=== PATIENT | female | born 1965 | race Caucasian/White ===

== ENCOUNTER → 2020-07-06 | Outpatient (CLI) | payer OTHER ==
[~2020-07-06] MED LIST: ASPI-1012 PO; CHOL20004 PO; CLON2TAB11 PO; HYDR-4457 PO; QUET300T44 PO; RISP3TAB63 PO; SERT100T12 PO; TRAZ150T79 PO
== END | disposition home or self-care (01) ==
LOC: RAH 10:00
PROVIDERS: ATTEND Family Medicine
DX: K76.0 Fatty (change of) liver, not elsewhere classified (principal); R16.0 Hepatomegaly, not elsewhere classified; R14.0 Abdominal distension (gaseous)
CPT/HCPCS: 76700

== ENCOUNTER 2022-06-06 07:56 | Observation (INO) | payer OTHER ==
[2022-06-04 11:41] LABS: BASOPHILS % (AUTO) 0.4 % (0.0-5.0); HEMATOCRIT 40.1 % (36-48); LYMPHOCYTES % (AUTO) 37.1 % (21.0-51.0); MEAN CORPUSCULAR HEMOGLOBIN 31.3 pg (27.0-33.0); MEAN CORPUSCULAR HGB CONC 34.7 g/dL (32.0-36.0); MEAN CORPUSCULAR VOLUME 90.3 fL (79-99); MONOCYTES % (AUTO) 6.7 % (3.0-13.0); NEUTROPHILS % (AUTO) 54.7 % (40.0-77.0); PLATELET COUNT (AUTO) 266 K/uL (130-400); RED BLOOD CELL COUNT(AUTO) 4.44 MIL/uL (4.00-5.50); RED CELL DISTRIBUTION WIDTH 12.4 % (11.0-15.5); WHITE BLOOD COUNT (AUTO) 8.2 K/uL (4.8-10.8)
[2022-06-04 11:50] LABS: ALBUMIN 4.2 g/dL (3.5-5.0); CARBON DIOXIDE 30 mmol/L (21-32); CHLORIDE 100 mmol/L (101-111); CREATININE 0.9 mg/dL (0.5-1.5); GLOMERULAR FILTR. RATE CALC 68 mL/min (>60); GLUCOSE,RANDOM 157 mg/dL (70-105); POTASSIUM 3.6 mmol/L (3.5-5.1); SODIUM SERUM 137 mmol/L (136-145); UREA NITROGEN, BLOOD 13 mg/dL (7-18)
[2022-06-04 11:51] LABS: CRP QUANTITATIVE < 2.00 mg/L (0.00-9.0)
[2022-06-04 11:53] LABS: INR 0.94 (0.85-1.15); PROTHROMBIN TIME 10.3 SEC (9.6-11.6)
[2022-06-04 11:55] LABS: PARTIAL THROMBOPLASTIN TIME 27.3 SEC (26.3-35.5)
[2022-06-05 12:40] VITALS: BP 123/69
[~2022-06-06] VITALS: Ht 157.5 cm; Wt 73.5 kg
[2022-06-06] VITALS (29 sets, daily range): BP systolic 106–165; BP diastolic 56–81
[~2022-06-06 07:56] MED LIST changes: -ASPI-1012 PO; +DOCU50CA13 PO; +GABA600T10 PO; -HYDR-4457 PO; +MELO-106 PO; +MULT-1367 PO; +OMEG-148 PO; +QUET300T19 PO; -QUET300T44 PO; +SENN-183 PO; -SERT100T12 PO
[2022-06-06] MEDS ORDERED: KETOROLAC 30MG VIAL (30MG/ML) ONE (08:14)
[2022-06-06] MEDS ORDERED: ROPIVACAINE 0.5% 5MG/ML 30ML IJ ONE ×3 (08:14→10:38)
[2022-06-06] MEDS ORDERED: LACTATED RINGERS 1000ML 1,000 ML IV ONE (08:21)
[2022-06-06] MEDS: CEFAZOLIN SODIUM 1 GM VIAL IVP ONE ×2 (09:25→10:40)
[2022-06-06] MEDS ORDERED: PROPOFOL 10 MG/ML 20ML VIAL IV ONE (10:36)
[2022-06-06] MEDS ORDERED: LIDOCAINE HCL-MPF 1% 5ML AMP IJ ONE (10:38)
[2022-06-06] MEDS ORDERED: DEXAMETHASONE SOD PHOSPHATE 10MG/ML 1ML VIAL ONE (10:39)
[2022-06-06] MEDS ORDERED: MIDAZOLAM HCL 1 MG/ML 2ML VIAL ONE ×2 (10:39→13:27)
[2022-06-06] MEDS ORDERED: ONDANSETRON 4MG INJ ONE (10:39)
[2022-06-06] MEDS ORDERED: ROCURONIUM 10MG/1ML SYR 10 MG/ML ML ONE (10:40)
[2022-06-06] MEDS ORDERED: FENTANYL CITRATE PF 50 MCG/1 ML 2ML VIAL ONE ×2 (10:41→13:18)
[2022-06-06] MEDS: TRANEXAMIC ACID 1000MG/10ML ONE ×2 (10:55→12:11)
[2022-06-06] MEDS ORDERED: GLYCOPYRROLATE 1 MG/5 ML SYRINGE ONE (12:19)
[2022-06-06] MEDS ORDERED: NEOSTIGMINE 5MG/5ML SYR IV ONE (12:50)
[2022-06-06] MEDS ORDERED: MEPERIDINE-PF 25 MG/ML SYG ONE ×2 (12:59→13:08)
[2022-06-06] MEDS ORDERED: CALCIUM CARB 500MG PO PRN (13:00)
[2022-06-06] MEDS: KETOROLAC 15MG/ML VIAL (15MG/ML) IV SCH ×2 (13:00→20:02)
[2022-06-06] MEDS ORDERED: LIDOCAINE HCL-MPF 1% 2ML VIAL IV PRN (13:00)
[2022-06-06] MEDS ORDERED: HYDROCODONE/ACETAMINOPHEN 5/325 MG TAB PO PRN (13:00)
[2022-06-06] MEDS ORDERED: POTASSIUM CHLORIDE 10% ELIXIR 20 MEQ/15 ML UDCUP PO PRN (13:00)
[2022-06-06] MEDS ORDERED: ONDANSETRON 4MG INJ IVP PRN (13:00)
[2022-06-06] MEDS ORDERED: KCL 20 MEQ ERTAB PO PRN (13:00)
[2022-06-06] MEDS: 0.9%NACL 1000ML 1,000 ML IV SCH ×2 (13:00→23:26)
[2022-06-06] MEDS ORDERED: FERROUS FUMARATE 324 MG TABLET PO PRN (13:00)
[2022-06-06] MEDS ORDERED: POTASSIUM CHLORIDE 20MEQ/100ML 100 ML IV PRN (13:00)
[2022-06-06] MEDS: GABAPENTIN 100 MG CAPSULE PO SCH ×2 (16:39→20:01)
[2022-06-06] MEDS: TRAMADOL HCL 50 MG TABLET PO PRN (16:39)
[2022-06-06] MEDS: CEFAZOLIN SODIUM 1 GM VIAL IVP SCH (18:35)
[2022-06-06] MEDS: HYDROCODONE/ACETAMINOPHEN 5/325 MG TAB PO PRN (18:36)
[2022-06-06] MEDS: DOCUSATE SODIUM 100 MG CAP PO SCH (20:01)
[2022-06-06] MEDS: RISPERIDONE 1 MG TABLET PO SCH (23:25)
[2022-06-06] MEDS: QUETIAPINE FUMARATE 100 MG TAB PO SCH (23:25)
[2022-06-06] MEDS: TRAZODONE HCL 100 MG TABLET PO SCH (23:26)
[2022-06-07] MEDS: CEFAZOLIN SODIUM 1 GM VIAL IVP SCH (01:42)
[2022-06-07] MEDS: HYDROCODONE/ACETAMINOPHEN 5/325 MG TAB PO PRN ×4 (02:14→18:54)
[2022-06-07] MEDS: CYCLOBENZAPRINE HCL 10 MG TABLET PO PRN ×2 (04:13→20:27)
[2022-06-07] MEDS: KETOROLAC 15MG/ML VIAL (15MG/ML) IV SCH (04:13)
[2022-06-07 04:16] LABS: HEMATOCRIT 30.3 % (36-48); MEAN CORPUSCULAR HEMOGLOBIN 31.3 pg (27.0-33.0); MEAN CORPUSCULAR HGB CONC 34.7 g/dL (32.0-36.0); MEAN CORPUSCULAR VOLUME 90.2 fL (79-99); RED BLOOD CELL COUNT(AUTO) 3.36 MIL/uL (4.00-5.50); RED CELL DISTRIBUTION WIDTH 12.6 % (11.0-15.5); WHITE BLOOD COUNT (AUTO) 13.2 K/uL (4.8-10.8)
[2022-06-07 04:17] VITALS: BP 109/59
[2022-06-07 04:25] LABS: CREATININE 1.1 mg/dL (0.5-1.5); POTASSIUM 3.7 mmol/L (3.5-5.1)
[2022-06-07 08:00] VITALS: BP 142/73
[2022-06-07] MEDS: FISH OIL 1000 MG/CAP PO SCH (08:35)
[2022-06-07] MEDS: POLYETHYLENE GLYCOL 3350 17 GM POWD.PACK PO SCH (08:35)
[2022-06-07] MEDS: CHOLECALCIFEROL 2000 UNIT PO SCH (08:36)
[2022-06-07] MEDS: GABAPENTIN 100 MG CAPSULE PO SCH ×3 (08:36→20:27)
[2022-06-07] MEDS: DOCUSATE SODIUM 100 MG CAP PO SCH ×2 (08:36→20:27)
[2022-06-07] MEDS: MULTIVITAMIN TABLET PO SCH (08:36)
[2022-06-07] MEDS: ASPIRIN 325MG TAB PO SCH (08:36)
[2022-06-07] MEDS: 0.9%NACL 1000ML 1,000 ML IV SCH (09:00)
[2022-06-07 11:30] VITALS: BP 114/65
[2022-06-07 16:30] VITALS: BP 123/59
[2022-06-07] MEDS: TRAMADOL HCL 50 MG TABLET PO PRN ×2 (16:43→21:59)
[2022-06-07 19:49] VITALS: BP 140/88
[2022-06-07] MEDS: TRAZODONE HCL 100 MG TABLET PO SCH (23:16)
[2022-06-07] MEDS: RISPERIDONE 1 MG TABLET PO SCH (23:17)
[2022-06-07] MEDS: QUETIAPINE FUMARATE 100 MG TAB PO SCH (23:17)
[2022-06-07 23:34] VITALS: BP 127/54
[2022-06-08 04:07] VITALS: BP 123/52
[2022-06-08] MEDS: HYDROCODONE/ACETAMINOPHEN 5/325 MG TAB PO PRN ×2 (06:10→11:20)
[2022-06-08] MEDS: CHOLECALCIFEROL 2000 UNIT PO SCH (07:59)
[2022-06-08 08:00] VITALS: BP 121/49
[2022-06-08] MEDS: DOCUSATE SODIUM 100 MG CAP PO SCH (08:38)
[2022-06-08] MEDS: MULTIVITAMIN TABLET PO SCH (08:38)
[2022-06-08] MEDS: FISH OIL 1000 MG/CAP PO SCH (08:38)
[2022-06-08] MEDS: ASPIRIN 325MG TAB PO SCH (08:39)
[2022-06-08] MEDS: GABAPENTIN 100 MG CAPSULE PO SCH (08:39)
[2022-06-08] MEDS: POLYETHYLENE GLYCOL 3350 17 GM POWD.PACK PO SCH (08:39)
[2022-06-08] MEDS: TRAMADOL HCL 50 MG TABLET PO PRN (09:17)
[2022-06-08] MEDS: MAGNESIUM HYDROXIDE 30 ML/UDCUP PO SCH ×2 (11:46→16:43)
[2022-06-08 11:52] VITALS: BP 131/52
[2022-06-08] MEDS ORDERED: GABAPENTIN 100 MG CAPSULE PO SCH (14:00)
[2022-06-08] MEDS ORDERED: BISACODYL 10 MG SUPP.RECT RC ONE (15:13)
[2022-06-08 16:00] VITALS: BP 113/61
[2022-06-08] MEDS ORDERED: GABA100C PO (17:25)
[2022-06-08] MEDS ORDERED: CELE200 PO (17:25)
[2022-06-08] MEDS ORDERED: DOCU-116 PO (17:25)
[2022-06-08] MEDS ORDERED: ASPI-1026 PO (17:25)
[2022-06-08] MEDS ORDERED: CYCL-309 PO (17:25)
[2022-06-08] MEDS ORDERED: HYDR-4060 PO ×2 (17:25→19:20)
[2022-06-09] MEDS ORDERED: CELECOXIB 200 MG CAP PO SCH (09:00)
[2022-06-09] MEDS ORDERED: BISACODYL 10 MG SUPP.RECT RC PRN (13:00)
== END 2022-06-08 19:01 ==
LOC: DAH 07:56 → DAHIP 07:57 → EDSTATUS 11:30 → 4DH 14:00
PROVIDERS: ADMIT Student in an Organized Health Care Education/Training Program; ATTEND Student in an Organized Health Care Education/Training Program
DX: M17.11 Unilateral primary osteoarthritis, right knee (principal); Z20.822 Contact with and (suspected) exposure to COVID-19; E78.00 Pure hypercholesterolemia, unspecified; G89.29 Other chronic pain; G47.9 Sleep disorder, unspecified; Z79.82 Long term (current) use of aspirin; Z79.899 Other long term (current) drug therapy; Z98.890 Other specified postprocedural states
CPT/HCPCS: 82040; 80048 ×2; 85025; 85610; 85730; 84134; 86140; 87426; 36415 ×2; 87641; 27447; 96374; 96375; 76942; 64447; 81025; 73560; 97161; 97039 ×4; 97530 ×4; 96376; 85027; 97116 ×4; A6260; A4223 ×2; G0378 ×49; A4663; A4215 ×2; A4600; J7120; J3010 ×2; J0690 ×3; J3490 ×3; J1100; J2710; J2250 ×2; J2704; J2405; J1885 ×3; J2175 ×2; J2795 ×3; G0168; A4649 ×2; C1776; A6255; A4222; A4221; A4216

== ENCOUNTER → 2024-01-08 | Outpatient (CLI) | payer OTHER ==
[~2024-01-08] MED LIST changes: +ASPI-1026 PO; +CELE200 PO; +CYCL-309 PO; +DOCU-116 PO; -DOCU50CA13 PO; +GABA100C PO; -GABA600T10 PO; +HYDR-4060 PO; -MELO-106 PO; -RISP3TAB63 PO; +RISP3TAB77 PO; -SENN-183 PO
[2024-01-08 21:55] VITALS: PULSE 90; RESP 12
[2024-01-08 22:50] VITALS: PULSE 93; RESP 12
[2024-01-08 23:18] VITALS: PULSE 59; RESP 12; RESP 16
[2024-01-08 23:49] VITALS: PULSE 66; RESP 18
[2024-01-09] VITALS (17 sets, daily range): PULSE 51–88; RESP 7–28
== END | disposition home or self-care (01) ==
LOC: SLP 20:36
PROVIDERS: ATTEND Family Medicine
DX: G47.33 Obstructive sleep apnea (adult) (pediatric) (principal); G47.10 Hypersomnia, unspecified
CPT/HCPCS: 95811

== ENCOUNTER 2024-01-28 00:46 | Emergency (ER) | payer OTHER ==
[~2024-01-28] VITALS: Ht 160 cm; Wt 65.8 kg
[2024-01-28] MEDS: KETOROLAC 60 MG VIAL (30MG/ML) IM ONE (02:38)
[2024-01-28] MEDS: ORPHENADRINE CITRATE 30 MG/ML ML IM ONE (02:50)
[2024-01-28] MEDS ORDERED: CYCL10TA16 PO (04:09)
[2024-01-28] MEDS ORDERED: IBUP-2070 PO (04:09)
[2024-01-28 04:37] VITALS: BP 138/62; PULSE 82; RESP 16; O2SAT 99
[2024-01-29] MEDS ORDERED: LIDO1ADH71 TP (20:04)
== END 2024-01-28 04:38 | disposition home or self-care (01) ==
LOC: EDH 00:46
DX: M54.50 Low back pain, unspecified (principal); G47.00 Insomnia, unspecified
CPT/HCPCS: 99283; 72100; 72072; 96372 ×2; 93005; J1885; J2360

== ENCOUNTER 2024-03-16 03:30 | Emergency (ER) | payer OTHER ==
[~2024-03-16] VITALS: Ht 157.5 cm; Wt 68.0 kg
[~2024-03-16 03:30] MED LIST changes: +CYCL10TA16 PO; +IBUP-2070 PO; +LIDO1ADH71 TP
[2024-03-16] MEDS: ORPHENADRINE 60MG/2ML IM ONE (04:29)
[2024-03-16] MEDS ORDERED: NAPR375T6 PO (05:12)
[2024-03-16] MEDS ORDERED: METH-662 PO (05:12)
[2024-03-16] MEDS: LIDOCAINE 5% TOPICAL PATCH TP ONE (05:20)
[2024-03-16] MEDS: KETOROLAC 30MG VIAL (30MG/ML) IM ONE (05:20)
[2024-03-16 05:24] VITALS: BP 129/72; PULSE 62; RESP 18; O2SAT 99
== END 2024-03-16 05:26 | disposition home or self-care (01) ==
LOC: EDH 03:30
DX: G89.29 Other chronic pain (principal); M54.9 Dorsalgia, unspecified; G47.00 Insomnia, unspecified; Z88.8 Allergy status to other drugs, medicaments and biological substances; Z79.82 Long term (current) use of aspirin; Z79.899 Other long term (current) drug therapy; Z98.890 Other specified postprocedural states
CPT/HCPCS: 99283; 72040; 72072; 96372 ×2; J1885; J2360

== ENCOUNTER 2024-03-27 22:01 | Emergency (ER) | payer OTHER ==
[~2024-03-27] VITALS: Ht 157.5 cm; Wt 61.2 kg
[~2024-03-27 22:01] MED LIST changes: +METH-662 PO; +NAPR375T6 PO
[2024-03-27 23:17] LABS: BASOPHILS # (AUTO) 0.03 K/uL (0.00-0.20); BASOPHILS % (AUTO) 0.4 % (0.0-5.0); EOSINOPHILS # (AUTO) 0.07 K/uL (0.00-0.70); EOSINOPHILS % (AUTO) 0.9 % (0.0-8.0); HEMATOCRIT 35.8 % (36-48); IMMATURE GRANULOCYTE ABSOLUTE 0.02 K/uL (0-1); LYMPHOCYTES # (AUTO) 3.3 K/uL (1.0-4.8); LYMPHOCYTES % (AUTO) 41.6 % (21.0-51.0); MEAN CORPUSCULAR HGB CONC 35.2 g/dL (32.0-36.0); MEAN CORPUSCULAR VOLUME 88.2 fL (79-99); MONOCYTES # (AUTO) 0.7 K/uL (0.1-1.0); MONOCYTES % (AUTO) 8.7 % (3.0-13.0); NEUTROPHILS # (AUTO) 3.8 K/uL (1.8-7.7); NEUTROPHILS % (AUTO) 48.1 % (40.0-77.0); PLATELET COUNT (AUTO) 261 K/uL (130-400); RED BLOOD CELL COUNT(AUTO) 4.06 MIL/uL (4.00-5.50); RED CELL DISTRIBUTION WIDTH 12.3 % (11.0-15.5); WHITE BLOOD COUNT (AUTO) 7.9 K/uL (4.8-10.8)
[2024-03-27 23:27] LABS: CREATININE 0.8 mg/dL (0.5-1.0); POTASSIUM 3.2 mmol/L (3.5-5.1)
[2024-03-28 00:05] LABS: SARS-CoV-2, RNA, NAAT NEGATIVE SARS CoV-2 (NEGATIVE)
[2024-03-28 00:09] LABS: INFLUENZA TYPE A Negative For Type A (NEGATIVE); INFLUENZA TYPE B Negative For Type B (NEGATIVE)
[2024-03-28] MEDS: POTASSIUM BICARB/CIT AC 25 MEQ TABLET.EFF PO STA (00:09)
[2024-03-28 01:19] VITALS: BP 103/48; PULSE 60; RESP 18; O2SAT 96
== END 2024-03-28 01:24 | disposition home or self-care (01) ==
LOC: EDH 22:01
DX: G47.00 Insomnia, unspecified (principal); R06.02 Shortness of breath; Z20.822 Contact with and (suspected) exposure to COVID-19; Z79.82 Long term (current) use of aspirin; Z79.899 Other long term (current) drug therapy; Z88.8 Allergy status to other drugs, medicaments and biological substances; Z98.890 Other specified postprocedural states
CPT/HCPCS: 36415; 71045; 80048; 84484; 85025; 87635; 87804; 93005

== ENCOUNTER 2024-03-31 02:30 | Emergency (ER) | payer OTHER ==
[~2024-03-31] VITALS: Ht 160 cm; Wt 63.0 kg
[2024-03-31 03:02] VITALS: BP 126/72; PULSE 70; RESP 18; O2SAT 96
[2024-03-31 03:02] LABS: APPEARANCE,URINE CLEAR (CLEAR); BILIRUBIN,URINE NEGATIVE (NEGATIVE); COLOR,URINE LIGHT-YELLOW (YELLOW); GLUCOSE, URINE (UA) NEGATIVE (NEGATIVE); KETONES,URINE NEGATIVE (NEGATIVE); LEUKOCYTE ESTERASE ,URINE NEGATIVE Leu/uL (NEGATIVE); NITRATE,URINE NEGATIVE (NEGATIVE); OCCULT BLOOD,URINE NEGATIVE (NEGATIVE); PROTEIN,URINE NEGATIVE (NEGATIVE); UROBILINOGEN,URINE 0.2 mg/dL (0.2-1.0)
[2024-03-31 03:06] LABS: ADD UA MICROSCOPIC NO
== END 2024-03-31 03:42 | disposition left against medical advice (07) ==
LOC: EDH 02:30
DX: R33.9 Retention of urine, unspecified (principal); G47.00 Insomnia, unspecified; Z79.82 Long term (current) use of aspirin; Z79.899 Other long term (current) drug therapy; Z88.8 Allergy status to other drugs, medicaments and biological substances; Z96.653 Presence of artificial knee joint, bilateral
CPT/HCPCS: 51701; 51702; 81003

== ENCOUNTER 2024-04-01 23:56 | Emergency (ER) | payer OTHER ==
[~2024-04-01] VITALS: Ht 160 cm; Wt 61.2 kg
[2024-04-02 01:18] LABS: BASOPHILS # (AUTO) 0.04 K/uL (0.00-0.20); BASOPHILS % (AUTO) 0.4 % (0.0-5.0); EOSINOPHILS # (AUTO) 0.13 K/uL (0.00-0.70); EOSINOPHILS % (AUTO) 1.4 % (0.0-8.0); HEMATOCRIT 38.8 % (36-48); IMMATURE GRANULOCYTE ABSOLUTE 0.02 K/uL (0-1); LYMPHOCYTES # (AUTO) 3.8 K/uL (1.0-4.8); LYMPHOCYTES % (AUTO) 41.5 % (21.0-51.0); MEAN CORPUSCULAR HEMOGLOBIN 31.8 pg (27.0-33.0); MEAN CORPUSCULAR HGB CONC 35.1 g/dL (32.0-36.0); MEAN CORPUSCULAR VOLUME 90.7 fL (79-99); MONOCYTES # (AUTO) 0.6 K/uL (0.1-1.0); MONOCYTES % (AUTO) 6.8 % (3.0-13.0); NEUTROPHILS # (AUTO) 4.6 K/uL (1.8-7.7); NEUTROPHILS % (AUTO) 49.7 % (40.0-77.0); PLATELET COUNT (AUTO) 302 K/uL (130-400); RED BLOOD CELL COUNT(AUTO) 4.28 MIL/uL (4.00-5.50); RED CELL DISTRIBUTION WIDTH 12.7 % (11.0-15.5); WHITE BLOOD COUNT (AUTO) 9.3 K/uL (4.8-10.8)
[2024-04-02 01:21] LABS: POTASSIUM 3.4 mmol/L (3.5-5.1)
[2024-04-02 01:25] LABS: ALBUMIN 3.7 g/dL (3.5-5.0); BILIRUBIN,TOTAL 0.5 mg/dL (0.2-1.0); TOTAL PROTEIN, SERUM 6.8 g/dL (6.0-8.3)
[2024-04-02 02:30] VITALS: BP 101/57; PULSE 60; RESP 18; O2SAT 97
[2024-04-02 02:34] LABS: APPEARANCE,URINE CLEAR (CLEAR); BILIRUBIN,URINE NEGATIVE (NEGATIVE); COLOR,URINE COLORLESS (YELLOW); GLUCOSE, URINE (UA) NEGATIVE (NEGATIVE); KETONES,URINE NEGATIVE (NEGATIVE); LEUKOCYTE ESTERASE ,URINE NEGATIVE Leu/uL (NEGATIVE); NITRATE,URINE NEGATIVE (NEGATIVE); OCCULT BLOOD,URINE NEGATIVE (NEGATIVE); PH,URINE 5.5 (5.0-8.0); PROTEIN,URINE NEGATIVE (NEGATIVE); UROBILINOGEN,URINE 0.2 mg/dL (0.2-1.0)
[2024-04-02 02:36] LABS: ADD UA MICROSCOPIC NO
== END 2024-04-02 03:34 | disposition left against medical advice (07) ==
LOC: EDH 23:56
DX: R33.9 Retention of urine, unspecified (principal); Z79.1 Long term (current) use of non-steroidal anti-inflammatories (NSAID); Z79.82 Long term (current) use of aspirin; Z79.899 Other long term (current) drug therapy; Z90.89 Acquired absence of other organs
CPT/HCPCS: 36415; 51701; 51702; 71045; 80053; 81003; 82550; 83690; 84484; 85025; 93005

== ENCOUNTER 2024-04-06 20:26 | Observation (INO) | payer OTHER ==
[~2024-04-06] VITALS: Ht 157.5 cm; Wt 66.7 kg
[2024-04-06] MEDS: ONDANSETRON 4MG INJ IVP ONE (01:50)
[2024-04-06] MEDS: 0.9%NACL 1000ML 1,000 ML IV ONE (01:50)
[2024-04-06] MEDS: FAMOTIDINE 20MG VIAL IV ONE (01:50)
[2024-04-06 21:43] LABS: BASOPHILS # (AUTO) 0.04 K/uL (0.00-0.20); BASOPHILS % (AUTO) 0.5 % (0.0-5.0); EOSINOPHILS # (AUTO) 0.21 K/uL (0.00-0.70); EOSINOPHILS % (AUTO) 2.8 % (0.0-8.0); HEMATOCRIT 37.4 % (36-48); IMMATURE GRANULOCYTE ABSOLUTE 0.02 K/uL (0-1); LYMPHOCYTES # (AUTO) 3.6 K/uL (1.0-4.8); LYMPHOCYTES % (AUTO) 47.5 % (21.0-51.0); MEAN CORPUSCULAR HEMOGLOBIN 31.5 pg (27.0-33.0); MEAN CORPUSCULAR HGB CONC 33.4 g/dL (32.0-36.0); MEAN CORPUSCULAR VOLUME 94.2 fL (79-99); MONOCYTES # (AUTO) 0.6 K/uL (0.1-1.0); MONOCYTES % (AUTO) 8.1 % (3.0-13.0); NEUTROPHILS # (AUTO) 3.1 K/uL (1.8-7.7); NEUTROPHILS % (AUTO) 40.8 % (40.0-77.0); PLATELET COUNT (AUTO) 254 K/uL (130-400); RED BLOOD CELL COUNT(AUTO) 3.97 MIL/uL (4.00-5.50); RED CELL DISTRIBUTION WIDTH 12.7 % (11.0-15.5); WHITE BLOOD COUNT (AUTO) 7.6 K/uL (4.8-10.8)
[2024-04-06 21:49] LABS: INR 0.95 (0.85-1.15); PROTHROMBIN TIME 10.3 SEC (9.6-11.6)
[2024-04-06 21:50] LABS: PARTIAL THROMBOPLASTIN TIME 25.9 SEC (26.3-35.5)
[2024-04-06 22:10] LABS: CREATININE 0.9 mg/dL (0.5-1.0); POTASSIUM 4.6 mmol/L (3.5-5.1)
[2024-04-06 22:21] LABS: ALBUMIN 3.7 g/dL (3.5-5.0); BILIRUBIN,TOTAL 0.3 mg/dL (0.2-1.0); TOTAL PROTEIN, SERUM 6.5 g/dL (6.0-8.3)
[2024-04-06 22:54] LABS: APPEARANCE,URINE CLEAR (CLEAR); BILIRUBIN,URINE NEGATIVE (NEGATIVE); COLOR,URINE COLORLESS (YELLOW); GLUCOSE, URINE (UA) NEGATIVE (NEGATIVE); KETONES,URINE NEGATIVE (NEGATIVE); LEUKOCYTE ESTERASE ,URINE NEGATIVE Leu/uL (NEGATIVE); NITRATE,URINE NEGATIVE (NEGATIVE); OCCULT BLOOD,URINE NEGATIVE (NEGATIVE); PROTEIN,URINE NEGATIVE (NEGATIVE); UROBILINOGEN,URINE 0.2 mg/dL (0.2-1.0)
[2024-04-06 23:19] LABS: BACTERIA,URINE RARE /HPF (None Seen); SQUAMOUS EPITHELIAL CELL,UR RARE /HPF (0-2); WBC,URINE 0-1 /HPF (0-1)
[2024-04-07] MEDS: FAMOTIDINE 20MG VIAL IV ONE (01:37)
[2024-04-07] MEDS: ONDANSETRON 4MG INJ ONE (01:38)
[2024-04-07] MEDS: 0.9%NACL 1000ML 1,000 ML IV ONE (04:53)
[2024-04-07] MEDS: KETOROLAC 15MG/ML VIAL (15MG/ML) IV ONE (05:05)
[2024-04-07] MEDS ORDERED: ONDA-243 PO (06:00)
[2024-04-07] MEDS ORDERED: FAMO-136 PO (06:00)
[2024-04-07 06:19] VITALS: BP 123/65; PULSE 68; RESP 18; O2SAT 99
[2024-04-07] MEDS: DICYCLOMINE HCL 20 MG TAB PO ONE (06:30)
[2024-04-07] MEDS ORDERED: ONDANSETRON 4MG INJ IVP PRN (07:00)
[2024-04-07] MEDS ORDERED: ALBUTEROL 0.083% 2.5 MG/3 ML INH IH PRN (07:00)
[2024-04-07] MEDS ORDERED: acetaMINOPHEN 325 MG TAB PO PRN (07:00)
[2024-04-07] MEDS ORDERED: 0.9%NACL 1000ML 1,000 ML IV SCH (07:00)
[2024-04-07] MEDS ORDERED: HYDROCODONE/ACETAMINOPHEN 5/325 MG TAB PO PRN (07:00)
[2024-04-07] MEDS ORDERED: LABETALOL 20MG SYG IV PRN (07:00)
[2024-04-07] MEDS ORDERED: acetaMINOPHEN 650 MG SUPPOSITORY RC PRN (07:00)
[2024-04-07] MEDS ORDERED: hydrALAZine 20MG/ML VIAL IV PRN (07:00)
[2024-04-07] MEDS ORDERED: POLYETHYLENE GLYCOL 3350 17 GM POWD.PACK PO SCH (09:00)
[2024-04-07] MEDS ORDERED: FAMOTIDINE 20MG TAB PO SCH (09:00)
[2024-04-07] MEDS ORDERED: ASCORBIC ACID 500 MG TAB PO SCH (09:00)
== END 2024-04-07 06:40 | disposition left against medical advice (07) ==
LOC: EDH 20:26 → EDHIP 04-07 06:36 → EDH 04-07 06:50
PROVIDERS: ADMIT Internal Medicine Critical Care Medicine; ATTEND Internal Medicine Critical Care Medicine
DX: R10.84 Generalized abdominal pain (principal); M62.82 Rhabdomyolysis; Z96.653 Presence of artificial knee joint, bilateral; Z87.820 Personal history of traumatic brain injury; Z79.899 Other long term (current) drug therapy; Z98.890 Other specified postprocedural states
CPT/HCPCS: 96374; 96375 ×2; 99284; 82550; 84484; 80053; 83690; 85025; 85610; 85730; 83605; 81001; 36415; 93005; 96361; 74176; J3490; J7030; J2405; J1885; G0378

== ENCOUNTER 2024-04-15 21:26 | Emergency (ER) | payer OTHER ==
[~2024-04-15] VITALS: Ht 160 cm; Wt 64.4 kg
[~2024-04-15 21:26] MED LIST changes: +FAMO-136 PO; +ONDA-243 PO
[2024-04-15 21:54] VITALS: BP 135/88; PULSE 83; RESP 20; O2SAT 100
[2024-04-15] MEDS: Solu-medROL 125MG VIAL IM ONE (22:21)
[2024-04-15] MEDS: KETOROLAC 15MG/ML VIAL (15MG/ML) IM ONE (22:21)
[2024-04-15] MEDS: CYCLOBENZAPRINE HCL 10 MG TABLET PO ONE (22:22)
[2024-04-16] MEDS ORDERED: PRED20TA3 PO (06:09)
[2024-04-16] MEDS ORDERED: SIME125C81 PO (06:09)
[2024-04-16] MEDS ORDERED: ACET-2079 PO (08:41)
[2024-04-16] MEDS ORDERED: DOCU-116 PO (08:41)
== END 2024-04-15 22:31 | disposition left against medical advice (07) ==
LOC: EDH 21:26
DX: Z53.21 Procedure and treatment not carried out due to patient leaving prior to being seen by health care provider (principal); M54.9 Dorsalgia, unspecified; M62.830 Muscle spasm of back; G47.30 Sleep apnea, unspecified; Z79.82 Long term (current) use of aspirin; Z79.899 Other long term (current) drug therapy; Z88.8 Allergy status to other drugs, medicaments and biological substances; Z96.653 Presence of artificial knee joint, bilateral; Z98.890 Other specified postprocedural states
CPT/HCPCS: J1885; J2919

== ENCOUNTER 2024-04-16 00:25 | Emergency (ER) | payer OTHER ==
[~2024-04-16] VITALS: Ht 160 cm; Wt 64.4 kg
[2024-04-16] MEDS: KETOROLAC 15MG/ML VIAL (15MG/ML) IM ONE (03:44)
[2024-04-16] MEDS: CYCLOBENZAPRINE HCL 10 MG TABLET PO ONE (03:44)
[2024-04-16] MEDS: SIMETHICONE 80 MG TAB.CHEW PO SCH ×2 (05:07→08:21)
[2024-04-16] MEDS: Solu-medROL 40MG VIAL IVP ONE (05:07)
[2024-04-16 05:31] LABS: APPEARANCE,URINE CLEAR (CLEAR); BILIRUBIN,URINE NEGATIVE (NEGATIVE); COLOR,URINE COLORLESS (YELLOW); GLUCOSE, URINE (UA) NEGATIVE (NEGATIVE); KETONES,URINE NEGATIVE (NEGATIVE); LEUKOCYTE ESTERASE ,URINE NEGATIVE Leu/uL (NEGATIVE); NITRATE,URINE NEGATIVE (NEGATIVE); OCCULT BLOOD,URINE NEGATIVE (NEGATIVE); PH,URINE 7.5 (5.0-8.0); PROTEIN,URINE NEGATIVE (NEGATIVE); UROBILINOGEN,URINE 0.2 mg/dL (0.2-1.0)
[2024-04-16 05:32] LABS: ADD UA MICROSCOPIC NO
[2024-04-16 05:36] LABS: AMPHET/METH SCREEN,URINE NEGATIVE (NEGATIVE); BARBITURATE SCREEN, URINE NEGATIVE (NEGATIVE); BENZODIAZEPINES SCREEN,URINE NEGATIVE (NEGATIVE); CANNABINOID SCREEN,URINE NEGATIVE (NEGATIVE); COCAINE SCREEN,URINE NEGATIVE (NEGATIVE); OPIATE SCREEN,URINE NEGATIVE (NEGATIVE); PHENCYCLIDINE SCREEN,URINE NEGATIVE (NEGATIVE)
[2024-04-16] MEDS ORDERED: SIME125C81 PO (06:09)
[2024-04-16] MEDS ORDERED: PRED20TA3 PO (06:09)
[2024-04-16] MEDS: IpraTROPium/alBUTERol SULFATE 3 ML SOLUTION IH ONE (06:35)
[2024-04-16 06:37] VITALS: PULSE 62; RESP 18
[2024-04-16 08:10] VITALS: BP 160/73; PULSE 80; RESP 20; O2SAT 97
[2024-04-16] MEDS ORDERED: ACET-2079 PO (08:41)
[2024-04-16] MEDS ORDERED: DOCU-116 PO (08:41)
== END 2024-04-16 09:00 | disposition home or self-care (01) ==
LOC: EDH 00:25
DX: G89.29 Other chronic pain (principal); M54.9 Dorsalgia, unspecified; G47.30 Sleep apnea, unspecified; Z79.82 Long term (current) use of aspirin; Z79.899 Other long term (current) drug therapy; Z88.8 Allergy status to other drugs, medicaments and biological substances; Z98.890 Other specified postprocedural states
CPT/HCPCS: 99283; 96374; 80305; 81003; 96372; 94640; J2919; J1885

== ENCOUNTER → 2024-05-03 | Emergency (ER) | payer OTHER ==
[~2024-05-03] MED LIST changes: +ACET-2079 PO; +PRED20TA3 PO; +SIME125C81 PO
== END ==
LOC: EDH 09:05
DX: F41.0 Panic disorder [episodic paroxysmal anxiety] (principal)

== ENCOUNTER 2024-10-26 03:59 | Emergency (ER) | payer OTHER ==
[~2024-10-26] VITALS: Ht 160 cm; Wt 68.0 kg
[~2024-10-26 03:59] MED LIST changes: +NAPR-1505 PO; -NAPR375T6 PO
[2024-10-26 05:00] VITALS: BP 121/77; PULSE 74; RESP 18; TEMP 98.1; O2SAT 97
--- NOTE | 2024-10-26 05:21 | NUR ---
PT ELOPED AFTER SPEAKING WITH MD. PT IS AMBULATORY WITHOUT DIFFICULTIES, NO SIGNS OF ACUTE DISTRESS NOTED.
--- NOTE | 2024-10-26 05:23 | ERN ---
General Chief Complaint: Back Pain-No Injury Stated Complaint: BACK PAIN Time Seen by MD: 04:24 History of Present Illness Initial Comments Patient is a 59-year-old female who comes to the emergency room because she needs additional pain medicine for her back pain. She has already been seen at another hospital where they prescribed pain medications for her, gave her some Flexeril and a lidocaine patch in addition a prescription was forwarded to [facility] or [facility] for the patient to fill. The patient is here because she did not want to wait for that pharmacy to open for her to fill that prescription. Allergies: Coded Allergies: Tetracyclines (Unverified Allergy, Unknown, 01/20/19) Home Meds Active Scripts Acetaminophen with Codeine (Acetaminophen-Cod #3 Tablet) 300 Mg-30 Mg Tablet, 1 EACH PO Q6HPRN for pain, #10 TAB Prov:CHRIS GEE MD 04/16/24 Acetaminophen with Codeine (Acetaminophen-Cod #3 Tablet) 300 Mg-30 Mg Tablet, 1 EACH PO Q6HPRN for severe pain, #10 TAB Prov:CHRIS GEE MD 04/16/24 Docusate Sodium (Colace) 100 Mg Capsule, 100 MG PO DAILY for constipation, #30 CAP Prov:CHRIS GEE MD 04/16/24 Simethicone (Simethicone) 125 Mg Capsule, 125 MG PO TID for gas, #30 CAP Prov:THEODORE SIM MD 04/16/24 Prednisone (Prednisone) 20 Mg Tablet, 1 TAB PO AD for 6 Days, #14 TAB 0 Refills TAKE 1 TAB BY MOUTH THREE TIMES PER DAY X3 DAYS, THEN TAKE 1 TAB BY MOUTH TWICE A DAY X2 DAYS, THEN TAKE 1 TAB BY MOUTH ONCE A DAY X1 DAY. Prov:THEODORE SIM MD 04/16/24 Famotidine (Pepcid) 20 Mg Tablet, 20 MG PO BID for 7 Days, #14 TAB Prov:LULA MCKEON 04/07/24 Ondansetron (Ondansetron Odt) 4 Mg Tab.rapdis, 4 MG PO BID for 7 Days, #14 TAB Prov:LULA MCKEON 04/07/24 Naproxen (Naproxen) 375 Mg Tablet.dr, 375 MG PO BID PRN for BACK PAIN for 7 Days, #14 TAB Prov:JEANNE OLIVA MD 03/16/24 Methocarbamol (Robaxin) 750 Mg Tab, 750 MG PO BID PRN for SPASM for 3 Days, #6 TAB Prov:JEANNE OLIVA MD 03/16/24 Lidocaine (Lidocaine Pain Relief) 4 % Adh..patch, 1 EACH TP DAILY for 7 Days, #7 ADH.PATCH Prov:JEANNE OLIVA MD 01/29/24 Cyclobenzaprine HCl (Flexeril) 10 Mg Tab, 10 MG PO TID for muscle sstiffness, #14 TAB 0 Refills Prov:KINSEY BARROW MD 01/28/24 Ibuprofen (Ibuprofen) 600 Mg Tablet, 600 MG PO Q6H PRN for PAIN, #15 TAB Prov:KINSEY BARROW MD 01/28/24 Hydrocodone/Acetaminophen (Hydrocodon-Acetaminophen 5-325) 1 Each Tablet, 1 EACH PO Q4HPRN PRN for PAIN for 7 Days, #56 TAB 0 Refills Prov:ROCIO GUTIÉRREZ MD 06/08/22 Docusate Sodium (Colace) 100 Mg Capsule, 100 MG PO BID for constipation for 30 Days, #60 CAP 0 Refills Prov:ROCIO GUTIÉRREZ MD 06/08/22 Hydrocodone/Acetaminophen (Hydrocodon-Acetaminophen 5-325) 1 Each Tablet, 2 TAB PO Q4H PRN for MODERATE PAIN (4-6), #56 TAB 0 Refills Prov:ROCIO GUTIÉRREZ MD 06/08/22 Gabapentin (Neurontin) 100 Mg Capsule, 200 MG PO TID, #120 CAP 0 Refills Prov:ROCIO GUTIÉRREZ MD 06/08/22 Cyclobenzaprine HCl (Cyclobenzaprine HCl) 10 Mg Tablet, 5 MG PO TID PRN for pain/spasm, #90 TAB 0 Refills Prov:ROCIO GUTIÉRREZ MD 06/08/22 Celecoxib (Celebrex 200Mg Cap) 200 Mg Cap, 200 MG PO DAILY, #30 CAP 0 Refills Prov:ROCIO GUTIÉRREZ MD 06/08/22 Aspirin (Aspirin) 325 Mg Tablet, 325 MG PO DAILY, #30 TAB 0 Refills Prov:ROCIO GUTIÉRREZ MD 06/08/22 Reported Medications Multivitamin (Multivitamin) 1 Each Tablet, 1 EACH PO AM, TAB 06/05/22 [place]-3S/Dha/Epa/Fish Oil (Fish Oil 1,000 mg Softgel) 1 Each Capsule, 1 EACH PO AM, CAP 06/05/22 Cholecalciferol (Vitamin D3) (Vitamin D) 2,000 Unit Capsule, 2000 UNIT PO AM, CAP 01/21/19 Trazodone HCl (Trazodone HCl) 150 Mg Tablet, 2 TAB PO HS, TAB 01/20/19 Clonazepam (Clonazepam) 2 Mg Tablet, 2 MG PO HS, TAB 01/20/19 Risperidone (Risperidone) 3 Mg Tablet, 3 MG PO HS, TAB 01/20/19 Quetiapine Fumarate (Quetiapine Fumarate) 300 Mg Tablet, 400 MG PO HS, TAB 01/20/19 Past Medical History Past Medical History: Anxiety, Other Medical History Other: HX OF TBI; HX OF INSOMNIA Past Surgical History: Other Surgical History Other: BILATERAL KNEE REPLACEMENT Family History Family History: Negative Social History Social History: Negative Female( History) History: Not Applicable Physical Exam Physical Exam Dictation I explained to the patient after reviewing the paperwork from the other emergency room that I could not prescribe more pain medications for her or do more for her back pain. I did notice that when I asked the patient to provide me with the discharge paperwork from her earlier ED visit she was able to easily get up out of the chair and walk briskly down the hallway to the parking lot where she was able to get the paperwork from her car. After I explained to the patient that I would not feel comfortable prescribing more pain medications for her she got up and walked out of the emergency room. During this interview the patient appeared calm and not in distress, she was able to move easily. General Appearance comment Reviewing the patient's vital signs they were normal except for a relatively fast respiratory rate. They are inconsistent with somebody in excruciating pain. MDM As the patient left the ED when I said I could not provide her with more pain medications I feel the patient was medically stable, not in any danger of decompensation, and could be safely discharged from our emergency room. I noted in the patient's paperwork that it stated if she had continuing problems she could easily return to the emergency room from when she came. ED Course Vital Signs Date Time Temp Pulse Resp B/P (MAP) Pulse Ox O2 Delivery O2 Flow Rate FiO2 10/26/24 04:01 97.5 74 20 118/79 100 Room Air DX & DISP Disposition: Discharge Departure Impression: Primary Impression: Chronic back pain Condition: Stable Assign Patient to: I recommended to the patient that she see a physical therapist as most back pain is often a musculoskeletal problem. Continuing to treat low back pain with increasing doses of narcotics rarely does the patient service. Referrals: LISA SEO MD (PCP) ROBERT LANDAVERDE MD Oct 26, 2024 05:23
== END 2024-10-26 05:33 | disposition home or self-care (01) ==
LOC: EDH 03:59
DX: G89.29 Other chronic pain (principal); M54.50 Low back pain, unspecified; F41.9 Anxiety disorder, unspecified; Z79.1 Long term (current) use of non-steroidal anti-inflammatories (NSAID); Z79.82 Long term (current) use of aspirin; Z79.899 Other long term (current) drug therapy; Z96.653 Presence of artificial knee joint, bilateral
CPT/HCPCS: 99281

== ENCOUNTER 2025-06-03 00:58 | Emergency (ER) | payer OTHER ==
[~2025-06-03] VITALS: Ht 157.5 cm; Wt 66.7 kg
[~2025-06-03 00:58] MED LIST changes: +IBUP-1492 PO; -IBUP-2070 PO
[2025-06-03] MEDS ORDERED: NAPR-1192 PO (01:59)
--- NOTE | 2025-06-03 01:59 | ERN ---
ED Note History of Present Illness Stated Complaint: C/O BACK PAIN Chief Complaint: Back Pain-No Injury Time Seen by MD: 01:05 Dictation: 60-year-old female presents to ER complaints of generalized back pain. Denies burning with urination or frequency. Patient states she was working out this morning at the gym and started feeling some achiness to back after. Allergies: Coded Allergies: Tetracyclines (Unverified Allergy, Unknown, 01/20/19) Home Meds Active Scripts Naproxen (Naproxen) 375 Mg Tablet, 375 MG PO BID for 10 Days, #20 TAB 0 Refills Prov:CATY SANTOS MAINTENANCE MAN 06/03/25 Acetaminophen with Codeine (Acetaminophen-Cod #3 Tablet) 300 Mg-30 Mg Tablet, 1 EACH PO Q6HPRN for pain, #10 TAB Prov:CHRIS GEE MD 04/16/24 Acetaminophen with Codeine (Acetaminophen-Cod #3 Tablet) 300 Mg-30 Mg Tablet, 1 EACH PO Q6HPRN for severe pain, #10 TAB Prov:CHRIS GEE MD 04/16/24 Docusate Sodium (Colace) 100 Mg Capsule, 100 MG PO DAILY for constipation, #30 CAP Prov:CHRIS GEE MD 04/16/24 Simethicone (Simethicone) 125 Mg Capsule, 125 MG PO TID for gas, #30 CAP Prov:THEODORE SIM MD 04/16/24 Prednisone (Prednisone) 20 Mg Tablet, 1 TAB PO AD for 6 Days, #14 TAB 0 Refills TAKE 1 TAB BY MOUTH THREE TIMES PER DAY X3 DAYS, THEN TAKE 1 TAB BY MOUTH TWICE A DAY X2 DAYS, THEN TAKE 1 TAB BY MOUTH ONCE A DAY X1 DAY. Prov:THEODORE SIM MD 04/16/24 Famotidine (Pepcid) 20 Mg Tablet, 20 MG PO BID for 7 Days, #14 TAB Prov:LULA MCKEON 04/07/24 Ondansetron (Ondansetron Odt) 4 Mg Tab.rapdis, 4 MG PO BID for 7 Days, #14 TAB Prov:LULA MCKEON 04/07/24 Naproxen (Naproxen) 375 Mg Tablet.dr, 375 MG PO BID PRN for BACK PAIN for 7 Days, #14 TAB Prov:JEANNE OLIVA MD 03/16/24 Methocarbamol (Robaxin) 750 Mg Tab, 750 MG PO BID PRN for SPASM for 3 Days, #6 TAB Prov:JEANNE OLIVA MD 03/16/24 Lidocaine (Lidocaine Pain Relief) 4 % Adh..patch, 1 EACH TP DAILY for 7 Days, #7 ADH.PATCH Prov:JEANNE OLIVA MD 01/29/24 Cyclobenzaprine HCl (Flexeril) 10 Mg Tab, 10 MG PO TID for muscle sstiffness, #14 TAB 0 Refills Prov:KINSEY BARROW MD 01/28/24 Ibuprofen (Ibuprofen) 600 Mg Tablet, 600 MG PO Q6H PRN for PAIN, #15 TAB Prov:KINSEY BARROW MD 01/28/24 Hydrocodone/Acetaminophen (Hydrocodon-Acetaminophen 5-325) 1 Each Tablet, 1 EACH PO Q4HPRN PRN for PAIN for 7 Days, #56 TAB 0 Refills Prov:ROCIO GUTIÉRREZ MD 06/08/22 Docusate Sodium (Colace) 100 Mg Capsule, 100 MG PO BID for constipation for 30 Days, #60 CAP 0 Refills Prov:ROCIO GUTIÉRREZ MD 06/08/22 Hydrocodone/Acetaminophen (Hydrocodon-Acetaminophen 5-325) 1 Each Tablet, 2 TAB PO Q4H PRN for MODERATE PAIN (4-6), #56 TAB 0 Refills Prov:ROCIO GUTIÉRREZ MD 06/08/22 Gabapentin (Neurontin) 100 Mg Capsule, 200 MG PO TID, #120 CAP 0 Refills Prov:ROCIO GUTIÉRREZ MD 06/08/22 Cyclobenzaprine HCl (Cyclobenzaprine HCl) 10 Mg Tablet, 5 MG PO TID PRN for pain/spasm, #90 TAB 0 Refills Prov:ROCIO GUTIÉRREZ MD 06/08/22 Celecoxib (Celebrex 200Mg Cap) 200 Mg Cap, 200 MG PO DAILY, #30 CAP 0 Refills Prov:RCOIO GUTIÉRREZ MD 06/08/22 Aspirin (Aspirin) 325 Mg Tablet, 325 MG PO DAILY, #30 TAB 0 Refills Prov:ROCIO GUTIÉRREZ MD 06/08/22 Reported Medications Multivitamin (Multivitamin) 1 Each Tablet, 1 EACH PO AM, TAB 06/05/22 [place]-3S/Dha/Epa/Fish Oil (Fish Oil 1,000 mg Softgel) 1 Each Capsule, 1 EACH PO AM, CAP 06/05/22 Cholecalciferol (Vitamin D3) (Vitamin D) 2,000 Unit Capsule, 2000 UNIT PO AM, CAP 01/21/19 Trazodone HCl (Trazodone HCl) 150 Mg Tablet, 2 TAB PO HS, TAB 01/20/19 Clonazepam (Clonazepam) 2 Mg Tablet, 2 MG PO HS, TAB 01/20/19 Risperidone (Risperidone) 3 Mg Tablet, 3 MG PO HS, TAB 01/20/19 Quetiapine Fumarate (Quetiapine Fumarate) 300 Mg Tablet, 400 MG PO HS, TAB 01/20/19 Past Medical History Past Medical History: Other Additional Past Medical Hx: HX OF TBI; HX OF INSOMNIA Surgical History: Unknown Surgical History Other: BILATERAL KNEE REPLACEMENT Family History: Negative Social History: Negative History: Not Applicable Review of System Dictation CONSTITUTIONAL: NEGATIVE FOR FEVER,CHILLS, AND WEIGHT LOSS EYES: NEGATIVE FOR INJURY, PAIN,REDNESS, AND DISCHARGE ENT: NEGATIVE FOR INJURY,PAIN OR SWELLING CARDIOVASCULAR: NEGATIVE FOR CHEST PAIN, PALPITATIONS, AND EDEMA RESPIRATORY: NEGATIVE FOR SHORTNESS OF BREATH, COUGH, WHEEZING, AND PLEURITIC CHEST PAIN ABDOMEN/GI: NEGATIVE FOR ABDOMINAL PAIN, NAUSEA, VOMITING AND DIARRHEA. BACK: Positive for pain : NEGATIVE FOR INJURY, BLEEDING AND DISCHARGE MS/EXTREMITY: NEGATIVE FOR INJURY AND DEFORMITY SKIN: NEGATIVE FOR RASH, AND DISCOLORATION NEURO: NEGATIVE FOR HEADACHE, WEAKNESS, NUMBNESS, TINGLING, AND SEIZURE PSYCH: NEGATIVE FOR SUICIDE IDEATION, HOMICIDAL IDEATION, AND HALLUCINATIONS ALLERGY/IMMUNOLOGY: NEGATIVE FOR HIVES, RASH, AND ALLERGIES ALL SYSTEMS NEGATIVE, EXCEPT NOTED ABOVE. 13 POINT REVIEW OF SYSTEMS ASSESSED AND ALL NEGATIVE EXCEPT FOR ABOVE. Initial Vital Sign VS Vital Signs Date Time Temp Pulse Resp B/P (MAP) Pulse Ox O2 Delivery O2 Flow Rate FiO2 06/03/25 01:00 96.8 75 20 155/82 99 Room Air 06/03/25 01:27 0 21 Physical Exam Dictation General: awake, alert, NAD Head/Face: Normocephalic, atraumatic Eyes: PERRL, EOMI, vision at baseline ENT: oral cavity clear, TMs clear, no signs of infection Neck: Trachea midline, supple, no nuchal rigidity Cardiovascular: RRR, normal no JVD Respiratory: CTAB, no respiratory distress, No rales or wheezes Abdomen: Soft, non-tender, non-distended, normal bowel sounds, no guarding or rebound. Skin: Warm, dry, normal turgor, no rash MS/Extremity: Pulses equal, no cyanosis, neurovascular intact, FROM Neuro: COAx4, GCS 15, strength 5/5, CN 2-12 intact, normal cerebellar exam, normal gait, Psych: Normal behavior, mood, and affect normal ED Course ED Course Orders Procedure Category Date Status Time Chest 2vws RAD 06/03/25 Logged 01:11 Urinalysis Profile LAB 06/03/25 Logged 01:11 Ketorolac PHA 06/03/25 Complete Tromethamine 30mg/Ml 01:30 Current Medications Medications (Trade) Dose Ordered Sig/Sera Route PRN Reason Start Time Stop Time Status Last Admin Dose Admin Ketorolac Tromethamine (toRADol) 30 mg ONCE ONCE IM 06/03/25 01:30 06/03/25 01:31 DC 06/03/25 01:38 Vital Signs Date Time Temp Pulse Resp B/P (MAP) Pulse Ox O2 Delivery O2 Flow Rate FiO2 06/03/25 01:27 97.2 78 20 151/78 97 Room Air* 0 21 06/03/25 01:00 96.8 75 20 155/82 99 Room Air Medical Decision Making MDM MDM: Differential diagnosis: Muscle strain, muscle spasm, chronic back pain Rationale: Tests considered and ordered secondary to shared decision making include: labs, ECG and radiology Previous outside records reviewed: Old ER visits. Risk of complication and/or morbidity or mortality of patient management: None Medications-Per medication reconciliation Need for hospitalization: Patient does NOT meet criteria for hospitalization. Need for emergency major/minor surgery: No There are no social concerns with this patient. Prescription drug management Prescriptions will include symptomatic care Patient's prior external medical records from other ER visits were reviewed by me as indicated. Prior testing and results from previous visits were reviewed. Prior tests were taken into account with medical decision making and resource utilization, independent historian/historians were used to obtain complete medical history. I independently interpreted the test that were performed, results were reviewed by me and considered findings on radiology if ordered. Patient declines chest x-ray and urinalysis. He states symptoms improved with Toradol injection DX & DISP Disposition: Discharge Departure Impression: Primary Impression: Back pain Additional Impression: Muscle spasm of back Condition: Stable Scripts Naproxen (Naproxen) 375 Mg Tablet 375 MG PO BID for 10 Days, #20 TAB 0 Refills Prov: CATY SANTOS 06/03/25 Referrals: LISA SEO MD (PCP) CATY SANTOS Jun 03, 2025 01:59
[2025-06-03 02:03] VITALS: BP 148/70; PULSE 78; RESP 18; TEMP 97.3; O2SAT 97
== END 2025-06-03 02:04 | disposition home or self-care (01) ==
LOC: EDH 00:58
DX: M62.830 Muscle spasm of back (principal); M54.9 Dorsalgia, unspecified; Z88.1 Allergy status to other antibiotic agents; Z79.899 Other long term (current) drug therapy; Z79.82 Long term (current) use of aspirin; Z79.1 Long term (current) use of non-steroidal anti-inflammatories (NSAID); Z87.820 Personal history of traumatic brain injury; Z96.653 Presence of artificial knee joint, bilateral
CPT/HCPCS: 99283; 96372; J1885

== ENCOUNTER 2025-07-13 23:05 | Emergency (ER) | payer OTHER ==
[~2025-07-13] VITALS: Ht 157.5 cm; Wt 66.7 kg
[~2025-07-13 23:05] MED LIST changes: +NAPR-1192 PO
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
[2025-07-13 23:36] VITALS: BP 145/74; PULSE 80; RESP 18; TEMP 98.4; O2SAT 98
== END 2025-07-13 23:41 | disposition home or self-care (01) ==
LOC: EDH 23:05
DX: S00.83XA Contusion of other part of head, initial encounter (principal); Z79.1 Long term (current) use of non-steroidal anti-inflammatories (NSAID); Z79.82 Long term (current) use of aspirin; Z79.899 Other long term (current) drug therapy; Z88.1 Allergy status to other antibiotic agents; Z96.653 Presence of artificial knee joint, bilateral; W22.8XXA Striking against or struck by other objects, initial encounter; Y93.89 Activity, other specified; Y92.89 Other specified places as the place of occurrence of the external cause; Y99.8 Other external cause status
CPT/HCPCS: 99282

== ENCOUNTER 2025-07-16 22:43 | Emergency (ER) | payer OTHER ==
[~2025-07-16] VITALS: Ht 154.9 cm; Wt 63.5 kg
[2025-07-16 22:45] VITALS: TEMP 98.5
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
[2025-07-16 23:21] LABS: IMMATURE GRANULOCYTE ABSOLUTE 0.02 K/uL (0-1); NUCLEATED RED BLOOD CELLS 0.0 % (0.0-0.19); PLATELET COUNT (AUTO) 271 K/uL (130-400); RED BLOOD CELL COUNT(AUTO) 4.22 MIL/uL (4.00-5.50); RED CELL DISTRIBUTION WIDTH 12.6 % (11.0-15.5); WHITE BLOOD COUNT (AUTO) 7.8 K/uL (4.8-10.8)
[2025-07-16] MEDS ORDERED: IOHEXOL-350 50ML VIAL IV ONE (23:28)
[2025-07-16 23:30] LABS: CREATININE 0.9 mg/dL (0.5-1.0); GLOMERULAR FILTR. RATE CALC 73.0 mL/min (>90); GLUCOSE,RANDOM 105.0 mg/dL (70-105); SODIUM SERUM 138.0 mmol/L (136-145); UREA NITROGEN, BLOOD 17.0 mg/dL (7-18)
[2025-07-17 00:26] VITALS: BP 160/79; PULSE 57; RESP 18; O2SAT 99
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
== END 2025-07-17 01:21 | disposition home or self-care (01) ==
LOC: EDH 22:43
DX: S00.83XA Contusion of other part of head, initial encounter (principal); Z79.1 Long term (current) use of non-steroidal anti-inflammatories (NSAID); Z79.82 Long term (current) use of aspirin; Z79.899 Other long term (current) drug therapy; Z88.1 Allergy status to other antibiotic agents; Z96.653 Presence of artificial knee joint, bilateral; Y00.XXXA Assault by blunt object, initial encounter; Y93.89 Activity, other specified; Y92.830 Public park as the place of occurrence of the external cause; Y99.8 Other external cause status
CPT/HCPCS: 99284; 70488; 85025; 80048; 36415; Q9967